=== PATIENT | male | born 1990 | race American Indian/Alaskan Native ===

== ENCOUNTER 2018-09-12 00:52 | Emergency (ER) | payer SELFPAY ==
[2018-09-12 01:21] LABS: Basophils # (Auto) 0.1 K/mm3 (0.0-0.1); Eosinophils # (Auto) 0.1 K/mm3 (0.0-0.4); Eosinophils % (Auto) 2.1 % (0.0-4.3); Hematocrit 45.1 % (35.5-45.6); Hemoglobin 15.1 gm/dl (11.8-15.2); Lymphocytes # (Auto) 1.7 K/mm3 (1.2-5.4); Lymphocytes % (Auto) 29.1 % (13.4-35.0); Mean Corpuscular HGB Conc 34 % (32-34); Mean Corpuscular Volume 88 fl (84-94); Monocytes # (Auto) 0.5 K/mm3 (0.0-0.8); Monocytes % (Auto) 8.2 % (0.0-7.3); Platelet Count 223 K/mm3 (140-440); Red Blood Count 5.12 M/mm3 (3.65-5.03); Red Cell Distribution Width 13.5 % (13.2-15.2)
[2018-09-12] MEDS ORDERED: TORADOL IV ONE (01:27)
[2018-09-12] MEDS ORDERED: NACL 0.9% 1000 ML 1,000 ML IV ONE ×2 (01:27→02:50)
[2018-09-12] MEDS ORDERED: ZOFRAN IV ONE (01:27)
--- NOTE | 2018-09-12 01:32 | Emergency Department Report ---
ED Abdominal Pain HPI - General Chief Complaint: Abdominal Pain Stated Complaint: ABD PAIN Time Seen by Provider: 09/12/18 01:22 Source: patient Mode of arrival: Ambulatory Limitations: No Limitations - History of Present Illness Initial Comments: PT is a 28 y/o aam who presents for abd pain left LLQ radiating to left flank with dysuria requency state hard to get flow started there is n/v no fever or chills pt denies fall injury or trauma, MD Complaint: abdominal pain, flank pain Onset/Timin -: days(s) Location: LLQ Radiation: L flank Migration to: L flank Severity: moderate Severity scale (0 -10): 7 Quality: sharp Consistency: constant Improves With: nothing Worsens With: other (voiding) Associated Symptoms: nausea, vomiting - Related Data Previous Rx's Medication Instructions Recorded Last Taken Type Ciprofloxacin HCl [Ciprofloxacin 500 mg PO BID 10 Days #20 tab 09/12/18 Unknown Rx TAB] Tamsulosin [Flomax] 0.4 mg PO QDAY #15 cap 09/12/18 Unknown Rx traMADol [Ultram] 50 mg PO Q6HR PRN #12 tablet 09/12/18 Unknown Rx Allergies Allergy/AdvReac Type Severity Reaction Status Date / Time No Known Allergies Allergy Unverified 09/12/18 00:57 ED Review of Systems ROS: Stated complaint: ABD PAIN Other details as noted in HPI Constitutional: denies: chills, fever Eyes: denies: eye pain, eye discharge, vision change ENT: denies: ear pain, throat pain Respiratory: denies: cough, shortness of breath, wheezing Cardiovascular: denies: chest pain, palpitations Endocrine: no symptoms reported Gastrointestinal: abdominal pain, nausea, vomiting Genitourinary: urgency, dysuria, frequency. denies: hematuria, discharge, testicular pain, testicular mass Musculoskeletal: back pain Skin: denies: rash, lesions Neurological: denies: headache, weakness, paresthesias Psychiatric: denies: anxiety, depression Hematological/Lymphatic: denies: easy bleeding, easy bruising ED Past Medical Hx - Past Medical History Previous Medical History?: No - Surgical History Past Surgical History?: No - Social History Smoking Status: Never Smoker Substance Use Type: Marijuana - Medications Home Medications: Home Medications Medication Instructions Recorded Confirmed Last Taken Type Ciprofloxacin HCl [Ciprofloxacin 500 mg PO BID 10 Days #20 tab 09/12/18 Unknown Rx TAB] Tamsulosin [Flomax] 0.4 mg PO QDAY #15 cap 09/12/18 Unknown Rx traMADol [Ultram] 50 mg PO Q6HR PRN #12 tablet 09/12/18 Unknown Rx ED Physical Exam - General Limitations: No Limitations General appearance: alert, in no apparent distress - Head Head exam: Present: atraumatic, normocephalic - Eye Eye exam: Present: normal appearance, PERRL, EOMI Pupils: Present: normal accommodation - ENT ENT exam: Present: mucous membranes moist - Neck Neck exam: Present: normal inspection - Respiratory Respiratory exam: Present: normal lung sounds bilaterally. Absent: respiratory distress, stridor, chest wall tenderness - Cardiovascular Cardiovascular Exam: Present: regular rate, normal rhythm, normal heart sounds. Absent: systolic murmur, diastolic murmur, rubs, gallop - GI/Abdominal GI/Abdominal exam: Present: soft, tenderness (LLQ ), normal bowel sounds. Absent: distended, guarding, rebound, rigid, bruit, hernia - Rectal Rectal exam: Present: deferred - exam: Present: other (deffer by ) - Extremities Exam Extremities exam: Present: normal inspection, full ROM, normal capillary refill. Absent: tenderness - Back Exam Back exam: Present: full ROM, tenderness, CVA tenderness (L). Absent: muscle spasm, paraspinal tenderness, vertebral tenderness, rash noted - Neurological Exam Neurological exam: Present: alert, oriented X3, CN II-XII intact, normal gait - Psychiatric Psychiatric exam: Present: normal affect, normal mood - Skin Skin exam: Present: warm, dry, intact, normal color. Absent: rash ED Course Vital Signs 09/12/18 01:01 Temperature 98.7 F Pulse Rate 85 Respiratory 20 Rate Blood Pressure 147/98 O2 Sat by Pulse 100 Oximetry ED Medical Decision Making - Lab Data Result diagrams: 09/12/18 01:08 09/12/18 01:05 Labs 09/12/18 09/12/18 09/12/18 01:05 01:08 02:45 WBC 5.8 RBC 5.12 H Hgb 15.1 Hct 45.1 MCV 88 MCH 29 MCHC 34 RDW 13.5 Plt Count 223 Lymph % (Auto) 29.1 Mitchell % (Auto) 8.2 H Eos % (Auto) 2.1 Baso % (Auto) 1.0 Lymph # 1.7 Mitchell # 0.5 Eos # 0.1 Baso # 0.1 Seg Neutrophils % 59.6 Seg Neutrophils # 3.4 Sodium 139 Potassium 3.8 Chloride 102.4 Carbon Dioxide 26 Anion Gap 14 BUN 9 Creatinine 1.2 Estimated GFR > 60 BUN/Creatinine Ratio 8 Glucose 128 H Calcium 9.5 Total Bilirubin 0.20 AST 17 ALT 20 Alkaline Phosphatase 73 Total Protein 7.6 Albumin 4.2 Albumin/Globulin Ratio 1.2 Lipase 38 Urine Color Yellow Urine Turbidity Slightly-cloudy Urine pH 5.0 Ur Specific Ary 1.023 Urine Protein 30 mg/dl Urine Glucose (UA) Neg Urine Ketones Neg Urine Blood Lg Urine Nitrite Neg Urine Bilirubin Neg Urine Urobilinogen 2.0 Ur Leukocyte Esterase Neg Urine WBC (Auto) 3.0 Urine RBC (Auto) 41.0 U Epithel Cells (Auto) 1.0 Urine Bacteria (Auto) 1+ Urine Mucus 3+ - Radiology Data Radiology results: report reviewed, image reviewed Ordering Physician: OLAMIDE COOK NP Date of Service: 09/12/18 Procedure(s): CT abdomen pelvis wo con Accession Number(s): [id number] cc: OLAMIDE COOK NP CT abdomen pelvis wo con INDICATION / CLINICAL INFORMATION: MAIN: SHARP PAIN IN LOWER ABD BEGINNING A FEW HOURS AGO. TECHNIQUE: All CT scans at this location are performed using CT dose reduction for ALARA by means of automated exposure control. COMPARISON: None available. FINDINGS: No free fluid is seen in the abdomen. Mild left-sided hydronephrosis and hydroureter is seen. The liver, spleen, right kidney, pancreas, adrenal glands and great vessels are normal. In the pelvis, no free fluid is seen. There is a small stone present either in the base the bladder or at the left UVJ. No enlarged lymph nodes are identified. The appendix is normal. No significant skeletal abnormality is seen. IMPRESSION: Small stone either in the base of the bladder or at the left UVJ with mild left- sided obstruction. Signer Name: Marvin Bourgeois MD FACR Signed: 09/12/2018 2:31 AM Workstation Name: [id number] Transcribed By: MS Dictated By: Marvin Bourgeois MD Electronically Authenticated By: Marvin Bourgeois MD Signed Date/Time: 07/230 DD/ 7 TD/TT: - Medical Decision Making symptoms improved ct small urethral stones partial obstructing pain is relieved at this time, pt believes stone passed, plan,: dc with rx for flowmax, ultram, cipro, follow up with urology pt verbalized agreement and understanding of discharge plan. Critical care attestation.: If time is entered above; I have spent that time in minutes in the direct care of this critically ill patient, excluding procedure time. ED Disposition Clinical Impression: Kidney stone on left side Disposition: DC-01 TO HOME OR SELFCARE Is pt being admited?: No Does the pt Need Aspirin: No Condition: Stable Instructions: Kidney Stones (ED) Prescriptions: Ciprofloxacin HCl [Ciprofloxacin TAB] 500 mg PO BID 10 Days #20 tab Tamsulosin [Flomax] 0.4 mg PO QDAY #15 cap traMADol [Ultram] 50 mg PO Q6HR PRN #12 tablet PRN Reason: Pain Referrals: [facility] MD BHAVIK [Primary Care Provider] - 3-5 Days LAILA GUILLEN MD [Staff Physician] - 3-5 Days Forms: Work/School Release Form(ED) Time of Disposition: 04:25
[2018-09-12 01:39] LABS: Alanine Aminotransferase 20 units/L (7-56); Albumin 4.2 g/dL (3.9-5); BUN/Creatinine Ratio 8; Blood Urea Nitrogen 9 mg/dL (9-20); Calcium 9.5 mg/dL (8.4-10.2); Hemolysis Index 1
--- NOTE | 2018-09-12 02:35 | Cat Scan Report ---
CT abdomen pelvis wo con INDICATION / CLINICAL INFORMATION: MAIN: SHARP PAIN IN LOWER ABD BEGINNING A FEW HOURS AGO. TECHNIQUE: All CT scans at this location are performed using CT dose reduction for ALARA by means of automated e xposure control. COMPARISON: None available. FINDINGS: No free fluid is seen in the abdomen. Mild left-sided hydronephrosis and hydroureter is seen. The carla er, spleen, right kidney, pancreas, adrenal glands and great vessels are normal. In the pelvis, no free fluid is seen. There is a small stone present either in the base the bladder o r at the left UVJ. No enlarged lymph nodes are identified. The appendix is normal. No significant ske letal abnormality is seen. IMPRESSION: Small stone either in the base of the bladder or at the left UVJ with mild left-sided obstruction. Signer Name: Marvin PONCE Signed: 09/12/2018 2:31 AM Workstation Name: [id number]
[2018-09-12] MEDS ORDERED: ROCEPHIN/NS 1 GM/50 ML 1 GM/50 ML BAG IV ONE (02:50)
[2018-09-12 03:18] LABS: Bacteria,Urine 1+ /HPF (Negative); Bilirubin,Urine NEG (Negative); Blood,Urine LG (Negative); Color,Urine Yellow (Yellow); Mucus,Urine 3+ /HPF
[2018-09-12 06:07] VITALS: BP 123/88
== END 2018-09-12 04:38 | disposition home or self-care (01) ==
LOC: ED 00:52
DX: N20.0 Calculus of kidney (principal)
CPT/HCPCS: 36415; 74176; 80053; 81001; 83690; 85025; 96361; 96365; 96375; 99284; J0696; J1885; J2405; J7030